=== PATIENT | male | born 1965 | race Hispanic/Latino ===

== ENCOUNTER → 2022-08-21 15:06 | Outpatient (CLI) | payer BC, SELFPAY ==
--- NOTE | ~2022-08-21 | CT_ITS ---
EXAMINATION: CT lung screening DATE: 08/21/2022 15:26 INDICATION: Personal history of tobacco dependence TECHNIQUE: Computed tomography (CT) of the chest was performed without intravenous contrast. The dose -length product was 102.01 mGy-cm. Automated exposure control and iterative reconstruction technique were employed. COMPARISON: None FINDINGS: Heart size is normal. No significant pleural or pericardial effusion. There is an exophytic left renal cyst measuring 1.4 cm. No thoracic lymphadenopathy. There is a 4 mm left lower lobe nodul e, image 68. There is a 3 mm left upper lobe nodule. There are a few scattered 1-2 mm nodules in both lungs. No endobronchial lesions. No pneumothorax. No peripheral consolidation. Mild thoracic spondyl osis. Accentuated thoracic kyphosis. IMPRESSION: 1. Lung-RADS category 2: Benign appearance or behavior. Continue annual screening with noncontrast lo w-dose chest CT in 12 months. Reviewed, dictated and finalized at location B. IMPRESSION: 1. Lung-RADS category 2: Benign appearance or behavior. Continue annual screeni ng with noncontrast low-dose chest CT in 12 months.
== END ==
PROVIDERS: PCP Physician Assistant; Visit Provider Physician Assistant
DX: Z12.2 Encounter for screening for malignant neoplasm of respiratory organs (principal); F17.210 Nicotine dependence, cigarettes, uncomplicated
CPT/HCPCS: 71271

== ENCOUNTER → 2023-11-27 15:25 | Outpatient (CLI) | payer BC, SELFPAY ==
--- NOTE | ~2023-11-27 | CT_ITS ---
EXAMINATION: CT lung screening DATE: 11/27/2023 15:38 INDICATION: Nicotine dependence, cigarettes, uncomplicated TECHNIQUE: Computed tomography (CT) of the chest was performed without intravenous contrast. Addition al 3D reconstructions utilizing coronal maximum intensity projection (MIP) were performed. Automated exposure control and iterative reconstruction technique were employed. The dose-length product was 11 1.03 mGy-cm. COMPARISON: 08/21/2022 FINDINGS: No significant change in a couple nodules in the left lower lobe measuring 3-4 mm and 4-5 mm. No othe r pulmonary nodules, pneumonia, pulmonary edema or pleural effusion. Heart size is normal. No pericar dial effusion. Small amount of atherosclerotic calcification along the right coronary artery. Thoraci c aorta is normal in caliber. No pathologically enlarged thoracic lymphadenopathy. Diffuse hepatic st eatosis. 11 mm left renal cyst. Moderate thoracic spondylosis with chronic mild anterior wedging of a a few mid to lower thoracic vertebral bodies. IMPRESSION: 1. Lung-RADS category 2: Benign appearance or behavior. Continue annual screening with noncontrast lo w-dose chest CT in 12 months. 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 Lung-RADS category 2: Benign appearance or behavior. Continue annual screeni ng with noncontrast low-dose chest CT in 12 months.
== END ==
PROVIDERS: PCP Physician Assistant; Visit Provider Physician Assistant
DX: Z12.2 Encounter for screening for malignant neoplasm of respiratory organs (principal); F17.210 Nicotine dependence, cigarettes, uncomplicated
CPT/HCPCS: 71271

== ENCOUNTER 2025-05-14 00:01 | Day surgery (SDC) | payer BC, SELFPAY ==
[2025-05-05 14:12] VITALS: BMI 31.5
--- OUTSIDE RECORDS SUMMARY | 2025-05-14 00:03 | XMS_ITS | Encounter Summary ---
Author Organization [facility] Healthcare Address [address] [place] [address] Care Team Providers Care Head Irrigator Name Role Phone Joanna Flores Primary Care Provider [phone]- [phone] Encounter Details Date Type Department Care Team (Late st Contact Info) Description 05/10/2025 Results Follow-Up [facility] Family Medicine [address] [place] [address] Joanna Flores PA [address] [place] [address] MMR (IGG) PANEL (MEASLES, MUMPS, RUBELLA) Social History Tobacco Use Types Packs/Day Years Used Date Smoking Tobacco: Every Day Cigarettes 1 40 Smokeless Tobacco: Never Alcohol Use Standard Drinks/Week Comments Yes 0 (1 standard drink = 0.6 oz pur e alcohol) AUDIT-C Answer Date Recorded Q1: How often do you have a drink containing alcohol? 4 or more times a week 01/11/2025 Q2: How many drinks containi ng alcohol do you have on a typical day when you are drinking? 5 or 6 Q3: How often do you have si x or more drinks on one occasion? 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 [place] [address] PCP - General Internal Medicine 04/06/19 documented as of this encounter
--- OUTSIDE RECORDS SUMMARY | 2025-05-14 00:03 | XMS_ITS | Encounter Summary ---
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 Historical Provider Final Res ult documented in this encounter Visit Diagnoses Not on filedocumented in this encounter Care Teams Material Handling Technician Relationship Specialty Start Date End Date Joanna Flores PA [address] [place], [place] [id number] PCP - General Internal Medicine 04/06/19 documented as of this encounter
--- OUTSIDE RECORDS SUMMARY | 2025-05-14 00:03 | XMS_ITS | Clinical Summary ---
Author Organization [facility] Address [address] [place] [address] Care Team Providers Care Music Historian Name Role Phone Joanna Flores Primary Care Provider [phone] Allergies No known active allergies Medications lisinopriL (PRINIVIL,ZESTRIL) 10 mg tabletIndications:E ssential hypertension Take 1 tablet (10 mg total) by mouth daily 90 tablet 3 5 Active atorvastatin (LIPITOR) 10 mg tabletIndications:M ixed hyperlipidemia Take 1 tablet (10 mg total) by mouth daily 90 tablet 3 5 Active allopurinoL (ZYLOPRIM) 300 mg tabletIndications:G out, unspecified cause, unspecified chronicity, unspecified site Take 1 tablet (300 mg total) by mouth daily 90 tablet 3 5 Active Active Problems Problem Noted Date Diagnosed Date CLAUDIA (obstructive sleep apnea) 02/03/2025 Alcohol use 02/03/2025 Multiple pulmonary nodules 02/03/2025 Snoring 01/23/2025 Assessment & Plan (01/23/2025 9:50 PM CDT): This is a significant, separately identifiable problem that was evaluated and managed on the same day as the wellness exam Patient snores quite a bit. He has a stop Bang score of 5. Recommend sleep study. Colon cancer screening 01/23/2025 Assessment & Plan (01/23/2025 9:50 PM CDT): Colon cancer screening past due. Refer back to [facility] as Dr. Bingham did his last one in 2018. BMI 31.0-31.9,adult 08/05/2022 Assessment & Plan (01/11/2025 3:33 PM CDT): Discussed the patient's BMI. The BMI is above average. BMI management plan is completed. BMI Follow-up includes: nutrition counseling, exercise counseling and education provided. Assessment & Plan (11/23/2023 11:46 PM PLASTIC OUTFITTER): Discussed the patient's BMI. The BMI is above average. BMI management plan is completed. BMI Follow-up includes: nutrition counseling, exercise counseling and education provided. Assessment & Plan (08/05/2022 8:49 PM CDT): Discussed the patient's BMI. The BMI is above average. BMI management plan is completed. BMI Follow-up includes: nutrition counseling, exercise counseling and education provided. Prostate cancer screening 08/05/2022 Assessment & Plan (11/23/2023 11:46 PM PLASTIC OUTFITTER): Check PSA Assessment & Plan (08/05/2022 8:49 PM CDT): Check PSA Hyperglycemia 06/25/2021 Assessment & Plan (01/23/2025 9:49 PM CDT): Pre-diabetes/hyperglycemia is a precursor to Dm. Stressed importance of working on diet (decrease your simple sugars and one carbohydrate with each meal) and increase you exercise to achieve weight loss and this will help prevent you from progressing to diabetes. Assessment & Plan (11/23/2023 11:46 PM PLASTIC OUTFITTER): Pre-diabetes/hyperglycemia is a precursor to Dm. Stressed importance of working on diet (decrease your simple sugars and one carbohydrate with each meal) and increase you exercise to achieve weight loss and this will help prevent you from progressing to diabetes. Assessment & Plan (08/05/2022 8:48 PM CDT): Pre-diabetes/hyperglycemia is a precursor to Dm. Stressed importance of working on diet (decrease your simple sugars and one carbohydrate with each meal) and increase you exercise to achieve weight loss and this will help prevent you from progressing to diabetes. Assessment & Plan (06/25/2021 10:06 AM CDT): Pre-diabetes/hyperglycemia is a precursor to Dm. Stressed importance of working on diet (decrease your simple sugars and one carbohydrate with each meal) and increase you exercise to achieve weight loss and this will help prevent you from progressing to diabetes. Fatigue 06/25/2021 Assessment & Plan (01/23/2025 9:49 PM CDT): Probably multifactorial. Check labs and followup to re-evaluate Assessment & Plan (11/23/2023 11:46 PM PLASTIC OUTFITTER): Probably multifactorial. Check labs and followup to re-evaluate Assessment & Plan (08/05/2022 8:49 PM CDT): Probably multifactorial. Check labs and followup to re-evaluate Assessment & Plan (06/25/2021 10:06 AM CDT): Probably multifactorial. Check labs and followup to re-evaluate Obesity (BMI 30-39.9) 06/19/2021 Assessment & Plan (01/11/2025 3:33 PM CDT): Discussed the patient's BMI. The BMI is above average. BMI management plan is completed. BMI Follow-up includes: nutrition counseling, exercise counseling and education provided. Assessment & Plan (11/23/2023 11:44 PM PLASTIC OUTFITTER): Discussed the patient's BMI. The BMI is above average. BMI management plan is completed. BMI Follow-up includes: nutrition counseling, exercise counseling and education provided. Assessment & Plan (08/05/2022 8:48 PM CDT): Discussed the patient's BMI. The BMI is above average. BMI management plan is completed. BMI Follow-up includes: nutrition counseling, exercise counseling and education provided. Assessment & Plan (06/19/2021 3:07 PM CDT): Obesity is unchanged. Discussed the patient's BMI. The BMI is above average. BMI management plan is completed. BMI Follow-up includes: nutrition counseling, exercise counseling and education provided. BMI 32.0-32.9,adult 06/19/2021 Assessment & Plan (06/19/2021 3:07 PM CDT): Obesity is unchanged. Discussed the patient's BMI. The BMI is above average. BMI management plan is completed. BMI Follow-up includes: nutrition counseling, exercise counseling and education provided. Cigarette nicotine dependence without complicati on 06/17/2020 Assessment & Plan (01/23/2025 9:48 PM CDT): Encouraged smoking cessation. Discussed 3 minutes. Reviewed options for assistance with cessation. Reviewed terminal press operator sequela associated with smoking. Pt declines assistance at this time but may contact the office at anytime for further help as they desire. Due for low-dose CT. Order placed Assessment & Plan (11/23/2023 11:46 PM PLASTIC OUTFITTER): Encouraged smoking cessation. Discussed 3 minutes. Reviewed options for assistance with cessation. Reviewed terminal press operator sequela associated with smoking. Pt declines assistance at this time but may contact the office at anytime for further help as they desire. Due for low-dose CT Assessment & Plan (08/05/2022 8:48 PM CDT): Encouraged smoking cessation. Discussed 3 minutes. Reviewed options for assistance with cessation. Reviewed terminal press operator sequela associated with smoking. Pt declines assistance at this time but may contact the office at anytime for further help as they desire. Would like to do low-dose [facility] at [facility] Discussed with patient Lung Cancer screening options with the patient. Encouraged LowDose CT Patient is between 55 - 77 yo. Is a current smoker or quit in the last 15 years. Has a 30+pack years smoking history. Is currently without any signs or symptoms of lung cancer. Is willing to consider curative lung surgery if needed. Assessment & Plan (06/25/2021 10:06 AM CDT): Encouraged smoking cessation. Discussed 3 minutes. Reviewed options for assistance with cessation. Reviewed fci sequela associated with smoking. Pt declines assistance at this time but may contact the office at anytime for further help as they desire. Assessment & Plan (06/17/2020 9:45 PM CDT): Encouraged smoking cessation. Discussed 3 minutes. Reviewed options for assistance with cessation. Reviewed fci sequela associated with smoking. Pt declines assistance at this time but may contact the office at anytime for further help as they desire. Annual physical exam 05/30/2019 Assessment & Plan (01/23/2025 9:48 PM CDT): Encouraged healthy lifestyle, good nutrition and exercise. Encouraged Calcium and Vitamin D and weight bearing exercise for bone health. Reviewed immunizations Reviewed age appropirate screenings. Assessment & Plan (11/23/2023 11:45 PM PLASTIC OUTFITTER): Encouraged healthy lifestyle, good nutrition and exercise. Encouraged Calcium and Vitamin D and weight bearing exercise for bone health. Reviewed immunizations Reviewed age appropirate screenings. Assessment & Plan (08/05/2022 8:43 PM CDT): Encouraged healthy lifestyle, good nutrition and exercise. Encouraged Calcium and Vitamin D and weight bearing exercise for bone health. Reviewed immunizations Reviewed age appropirate screenings. Assessment & Plan (06/25/2021 10:06 AM CDT): Encouraged healthy lifestyle, good nutrition and exercise. Encouraged Calcium and Vitamin D and weight bearing exercise for bone health. Reviewed immunizations Reviewed age appropirate screenings. Assessment & Plan (06/17/2020 9:45 PM CDT): Encouraged healthy lifestyle, good nutrition and exercise. Encouraged Calcium and Vitamin D and weight bearing exercise for bone health. Reviewed immunizations Reviewed age appropirate screenings. Assessment & Plan (05/30/2019 10:27 PM CDT): Encouraged healthy lifestyle, good nutrition and exercise. Encouraged Calcium and Vitamin D and weight bearing exercise for bone health. Reviewed immunizations Reviewed age appropirate screenings. Mixed hyperlipidemia 05/24/2019 Assessment & Plan (01/23/2025 9:49 PM CDT): Encouraged patient to follow low fat/low chol diet like the Mediterranean diet. Increase good fats in the diet. Increase exercise. Monitor labs as needed. Continue atorvastatin 10 Assessment & Plan (11/23/2023 11:45 PM PLASTIC OUTFITTER): Encouraged patient to follow low fat/low chol diet like the Mediterranean diet. Increase good fats in the diet. Increase exercise. Monitor labs as needed. Continue atorvastatin 10 Assessment & Plan (08/05/2022 8:42 PM CDT): Encouraged patient to follow low fat/low chol diet like the Mediterranean diet. Increase good fats in the diet. Increase exercise. Monitor labs as needed. Continue Lipitor due for labs Assessment & Plan (06/25/2021 10:05 AM CDT): Encouraged patient to follow fat/low chol diet like the Mediterranean diet. Increase good fats in the diet. Increase exercise. Monitor labs as needed. Continue statin Assessment & Plan (06/17/2020 9:45 PM CDT): Encouraged patient to continue low fat/low chol diet. Continue exercise. Increase good fats in the diet. Monitor labs as needed. Continue statin Assessment & Plan (05/30/2019 10:27 PM CDT): Encouraged patient to continue low fat/low chol diet. Continue exercise. Increase good fats in the diet. Monitor labs as needed. Continue statin. If remains elevated, may consider increasing statin. Essential hypertension 05/24/2019 Assessment & Plan (01/23/2025 9:49 PM CDT): Bp is stable/in acceptable range for any co-morbidities. Encouraged to limit sodium intake and exercise for weight control. Continue lisinopril 10 Assessment & Plan (11/23/2023 11:45 PM PLASTIC OUTFITTER): Bp is stable/in acceptable range for any co-morbidities. Encouraged to limit sodium intake and exercise for weight control. Continue lisinopril 10 Assessment & Plan (08/05/2022 8:42 PM CDT): Encouraged to limit sodium intake and exercise for weight control. Not well controlled today. He is not taking his medicine as regular as he should. Encouraged to restart the 10 continue monitor closely and if his levels remain above 135/85 he is to call as will need to increase Assessment & Plan (06/25/2021 10:05 AM CDT): Bp is stable/in acceptable range for any co-morbidities. Encouraged to limit sodium intake and exercise for weight control. Continue lisinopril Assessment & Plan (06/17/2020 9:45 PM CDT): Bp is stable/in acceptable range for any co-morbidities. Encouraged to limit sodium intake and exercise for weight control. Continue lisinopril Assessment & Plan (05/30/2019 10:31 PM CDT): This is a significant, separately identifiable problem that was evaluated and managed on the same day as the wellness exam Bp is elevated today. Had been stretching out his meds as he needed to keep appointment. Will have him take his meds daily and return in a few weeks for nurse visit to confirm well controlled with current dosing. Encouraged to limit sodium intake and exercise for weight control. Gout 05/24/2019 Assessment & Plan (01/23/2025 9:49 PM CDT): No current gout flares. Continue allopurinol 300 daily Assessment & Plan (11/23/2023 11:44 PM PLASTIC OUTFITTER): No gout flares. Continue allopurinol Assessment & Plan (08/05/2022 8:43 PM CDT): No current flares. Continue with allopurinol 300 mg check labs Assessment & Plan (06/25/2021 10:05 AM CDT): Continue allopurinol. Check labs Assessment & Plan (06/17/2020 9:45 PM CDT): No gout flairs. Continue alloupurinol Assessment & Plan (05/30/2019 10:27 PM CDT): Continue allopurinol. No flairs. Resolved Problems Problem Noted Date Diagnosed Date Resolved Date Other fatigue 06/17/2020 06/25/2021 Assessment & Plan (06/17/2020 9:46 PM CDT): Probably multifactorial. Check labs and followup to re-evaluate BMI 29.0-29.9,adult 05/25/2019 06/19/20 Assessment & Plan (05/25/2019 4:26 PM CDT): Weight/BMI is in healthy range. Continue healthy lifestyle to maintain. Encounters Date Type Department Care Team Description 05/12/2025 3:00 PM CDT Office Visit [facility] [address] [address] Titus Rubio MD Multiple pulmonary nodules (Primary Dx); CLAUDIA (obstructive sleep apnea); Alcohol use; Cigarette nicotine dependence without complication; BMI 31.0-31.9,adult 05/10/2025 Results Follow-Up [facility] [address] [place] [address] [place] [phone] Joanna Flores PA MMR (IGG) PANEL (MEASLES, MUMPS, RUBELLA) 04/22/2025 Orders Only [address] [place] [address] Joanna Flores PA Immunity status testing (Primary Dx) 04/07/2025 Telephone [facility] [address] [place] [address] Amber Chairez, [facility] Sleep Study Results/CPAP order 04/05/2025 3:00 PM CDT - 04/05/2025 11:59 PM CDT Hospital Encounter [facility] [address] [place] [address] Snoring; CLAUDIA (obstructive sleep apnea); BMI 32.0-32.9,adult; Cigarette nicotine dependence without complication; Alcohol use; Multiple pulmonary nodules Discharge Disposition: Discharge to home or self care 03/13/2025 4:00 PM CDT - 03/13/2025 11:59 PM CDT Hospital Encounter [facility] [address] [place] [address] Personal history of nicotine dependence Discharge Disposition: Discharge to home or self care 02/24/2025 Results Follow-Up [facility] [place] [address] [facility] [address] [place] [address] Lung Cancer Screening 02/13/2025 1:05 PM CDT - 02/13/2025 11:59 PM CDT Hospital Encounter [facility] [address] [place] [address] Personal history of nicotine dependence Discharge Disposition: Discharge to home or self care from Last 3 Months Immunizations Immunization Administration Dates Next Due Influenza, Quadrivalent, Whitney l Culture-based MDCK, Preservative Free, Antibiotic Free, Intramuscular 08/18/2023,08/27/2022 Influenza, Quadrivalent, Spl it, Preservative Free, Intramuscular 08/23/2021,09/18/2020,08/07/2018 Influenza, Unspecified 01/25/2025(Deferred: Molly ent Refused) Tdap 11/25/2018 Surgical History Surgery Date Site/Laterality Comments HAND SURGERY Right Family History Medical History Relation Name Comments Cancer Mother Relation Name Status Comments Father Alive Mother Social History Tobacco Use Types Packs/Day Years Used Date Smoking Tobacco: Every Day Cigarettes 1 40 Smokeless Tobacco: Never Tobacco Cessation:Ready to Q uit: Not Asked; Counseling Given: Not Answered Alcohol Use Standard Drinks/Week Comments Yes 0 [...] on file Legal Sex Male 5:48 PM PLASTIC OUTFITTER Gender Identity Male 06/15/2020 10:19 AM CDT Sexual Orientation Straight 06/15/2020 10 :19 AM CDT Occupation Industry Job Start Date Job End Date [employer] Not on file Not on file Not on file Obstetrics History Last Filed Vital Signs Vital Sign Reading Time Taken Comments Blood Pressure 138/72 05/12/2025 2:36 PM CDT Pulse 65 05/12/2025 2:36 PM CDT Temperature 36.4 C (97.5 F) 05/12/2025 2:36 PM CDT Respiratory Rate 20 05/12/2025 2:36 PM CDT Oxygen Saturation 98% 05/12/2025 2:36 PM CDT Inhaled Oxygen Concentration - - Weight 87.1 kg (192 lb) 05/12/2025 2:36 PM CDT Height 165.1 cm (5' 5) 05/12/2025 2:36 PM CDT Body Mass Index 31.95 05/12/2025 2:36 PM CDT Plan of Treatment Health Maintenance Due Date Last Done Comments Hepatitis C Screening 1967 Hepatitis B Screening 1985 Pneumococcal vaccine <65 (1 of 2 - PCV) 1986 Zoster Vaccine (1 of 2) 2017 Colon Cancer Screening-Colonoscopy 03/28/2023 03/28/2018 Covid-19 Vaccine (3 - 2023-2 5 season) 2024 08/29/2021, 01/02/2021 Influenza Vaccine (#1) 2025 , 08/27/2022, 08/23/2021, Additional history exists Lung Cancer Screening 09/09/2025 03/13/2025 , 02/13/2025, 11/27/2023, Additional history exists Prostate Cancer Screening-PSA 11/16/2025, 08/11/2022, 05/18/2019 Depression Screening 01/11/2026 01/11/2025, 11/13/2023, 11/13/2023, Additional history exists Regular Well Visit/Exam 18-64 01/11/2026, 11/13/2023, 07/19/2022, Additional history exists DTaP/Tdap/Td Vaccine (2 - Td or Tdap) 11/25/2028 11/25/2018 Colon Cancer Screening-CT Colonography Discontinued 03/28/2018 Colon Cancer Screening-DNA Stool Discontinued 03/28/20 18 Colon Cancer Screening-FIT Discontinued 03/28/2018 Colon Cancer Screening-Sigmoidoscopy Discontinued 03/28/2018 Procedures Procedure Name Priority Date/Time Associated Diagnosis Comments MMR (IGG) PANEL (MEASLES, MUMPS, RUBELLA) Routine 05/08/2025 9:31 AM CDT Immunity status testing PORTABLE/HOME SLEEP STUDY Routine 04/05/2025 3:06 PM CDT Snoring CLAUDIA (obstructive sleep apnea) BMI 32.0-32.9,adult Cigarette nicotine dependence without complication Alcohol use Multiple pulmonary nodules CT LUNG CANCER SCREENING Schedule Routine, Read Routine (OP Routine) 03/13/2025 4:18 PM CDT Personal history of nicotine dependence CT LUNG CANCER SCREENING Schedule Routine, Read Routine (OP Routine) 02/13/2025 1:10 PM CDT Personal history of nicotine dependence PSA SCREEN Routine 11/16/2023 10:00 AM PLASTIC OUTFITTER Prostate cancer screening HM COLONOSCOPY Routine 03/28/2018 from Last 3 Months or Most Recently Relevant to Health Maintenance Results * MMR (IGG) PANEL (MEASLES, MUMPS, RUBELLA) (05/08/2025 9:31 AM CDT) Measles (Rubeola) IgG >300.00 AU/mL [facility] Comment: AU/mL Interpretation ----- <13.50 Not consistent with immunity 13.50-16.49 Equivocal >16.49 Consistent with immunity The presence of measles IgG suggests immunization or past or current infection with measles virus. For additional information, please refer to http://Hallspot.Aggios/faq/TCT389 (This link is being provided for informational/ educational purposes only.) Mumps IgG 166.00 AU/mL [facility] Comment: AU/mL Interpretation ------- <9.00 Not consistent with immunity 9.00-10.99 Equivocal >10.99 Consistent with immunity The presence of mumps IgG antibody suggests immunization or past or current infection with mumps virus. Rubella IgG >33.00 Index [facility] Comment: Index Interpretation ----- <0.90 Not consistent with immunity 0.90-0.99 Equivocal > or = 1.00 Consistent with immunity The presence of rubella IgG antibody suggests immunization or past or current infection with rubella virus. Blood 05/08/2025 9:31 AM CDT 05/08/2025 9:32 AM CDT Joanna TORRES LAB BLOOD ORDERABLES Final Result [facility] [address] [place] [address] * Portable/Home Sleep Study (04/05/2025 3:06 PM CDT) us Titus Rubio MD SLEEP CENTER ORDERABLES Fin al Result [facility] [address] [place] [id number] * CT Lung Cancer Screening (03/13/2025 4:18 PM CDT) Anatomical Region Laterality Modality Chest N/A Computed Tomogra phy 03/15/2025 1:20 PM CDT Narrative 03/15/2025 2:27 PM CDT EXAM DESCRIPTION: CT LUNG CANCER SCREENING REASON FOR STUDY: Screening CT of the chest in a current smoker with a 52.5 pack year smoking history. Additional history: None. TECHNIQUE: Low dose CT scan of the chest was performed without intravenous contrast using helical scanning technique. The exam extends from the lung apices through the lung bases. Automatic exposure control was used as a dose optimization technique. NOTE: This study was performed for the specific purposes of lung cancer screening and is not an alternative to diagnostic chest CT. RADIATION DOSE: CT dose index volume (CTDIvol) = 2.89 mGy COMPARISON: CT lung screen 02/13/2025; CT lung screen 11/27/2019 FINDINGS: SMOKING RELATED LUNG DISEASE: Mild emphysema LUNG NODULES: 5 mm nodule in the right upper lobe appears to be real (series 3, image 115). Unchanged 3 mm solid nodule in the left lower lobe on image 170. Unchanged 3 mm solid nodule in the right upper lobe on image 84. Unchanged 6 mm solid nodule in the right upper lobe on image 137. Unchanged 5 mm solid nodule in the left lower lobe on image 163. Unchanged 5 mm solid nodule in the left lower lobe on image 181. Unchanged 7 mm ground-glass nodule in the left upper lobe on image 115. CORONARY ARTERY CALCIFICATION: Positive OTHER: There is no pleural effusion or pneumothorax. Central airways are patent. Normal heart size without pericardial effusion. Thoracic aorta is normal in course and caliber and contains a moderate amount of calcified atherosclerotic plaque. There is hepatic steatosis. IMPRESSION: 1. Recommend six-month follow-up for a 5 mm nodule in the right upper lobe. 2. Additional unchanged bilateral pulmonary nodules measuring up to 7 mm. No new pulmonary nodule. 3. Mild emphysema. 4. Hepatic steatosis. Lung-RADS category 3: Probably benign. Recommendation: Low dose CT of chest in 6 months. THIS IS AN ELECTRONICALLY VERIFIED FINAL REPORT 03/15/2025 2:27 PM - Electronically signed by Neal Islas M.D. AM: AM Report ID: [id number] Reading Location: [id number] Procedure Note Neal Islas MD - 03/15/2025 EXAM DESCRIPTION: CT LUNG CANCER SCREENING REASON FOR STUDY: Screening CT of the chest in a current smoker with a 52.5 pack year smoking history. Additional history: None. TECHNIQUE: Low dose CT scan of the chest was performed without intravenous contrast using helical scanning technique. The exam extends from the lung apices through the lung bases. Automatic exposure control was used as adose optimization technique. NOTE: This study was performed for the specific purposes of lung cancer screening and is not an alternative to diagnostic chest CT. RADIATION DOSE: CT dose index volume (CTDIvol) = 2.89 mGy COMPARISON: CT lung screen 02/13/2025; CT lung screen 11/27/2019 FINDINGS: SMOKING RELATED LUNG DISEASE: Mild emphysema LUNG NODULES: 5 mm nodule in the right upper lobe appears to be real(series 3, image 115). Unchanged 3 mm solid nodule in the left lower lobe on image 170. Unchanged 3 mm solid nodule in the right upper lobe on image 84. Unchanged 6 mm solid nodule in the right upper lobe on image 137. Unchanged 5 mm solid nodule in the left lower lobe on image 163. Unchanged 5 mm solid nodule in the left lower lobe on image 181. Unchanged 7 mm ground-glass nodule in the left upper lobe on image 115. CORONARY ARTERY CALCIFICATION: Positive OTHER: There is no pleural effusion or pneumothorax. Central airwaysare patent. Normal heart size without pericardial effusion. Thoracic aortais normal in course and caliber and contains a moderate amount of calcified atherosclerotic plaque. There is hepatic steatosis. IMPRESSION: 1. Recommend six-month follow-up for a 5 mm nodule in theright upper lobe. 2. Additional unchanged bilateral pulmonary nodules measuring up to 7 mm.No new pulmonary nodule. 3. Mild emphysema. 4. Hepatic steatosis. Lung-RADS category 3: Probably benign. Recommendation: Low dose CT of chest in 6 months. THIS IS AN ELECTRONICALLY VERIFIED FINAL REPORT 03/15/2025 2:27 PM - Electronically signed by Neal Islas M.D. AM: AM Report ID: [id number] Reading Location: [place] [address] Titus Rubio MD [facility] [place]ED[place] Final Res ult * CT Lung Cancer Screening (02/13/2025 1:10 PM CDT) Anatomical Region Laterality Modality Chest N/A Computed Tomogra phy 02/24/2025 2:38 PM CDT Narrative 02/24/2025 3:00 PM CDT EXAM DESCRIPTION: CT LUNG CANCER SCREENING REASON FOR STUDY: Screening CT of the chest in a current smoker with a 52.5 pack year smoking history. Additional history: None. TECHNIQUE: Low dose CT scan of the chest was performed without intravenous contrast using helical scanning technique. The exam extends from the lung apices through the lung bases. Automatic exposure control was used as a dose optimization technique. NOTE: This study was performed for the specific purposes of lung cancer screening and is not an alternative to diagnostic chest CT. RADIATION DOSE: CT dose index volume (CTDIvol) = 2.37 mGy COMPARISON: CT chest 11/27/2023 FINDINGS: Examination is degraded by respiratory motion in the lung bases. SMOKING RELATED LUNG DISEASE: Mild emphysema. There is also mild bronchial wall thickening. LUNG NODULES: Unchanged 3 mm solid nodule in the right upper lobe on image 73. Unchanged 6 mm solid nodule in the right upper lobe on image 124. Questionable new 5 mm solid nodule in the right upper lobe on image 108. Unchanged 5 mm solid nodule in the left lower lobe on image 164. New 3 mm solid nodule in the left lower lobe on image 170. Unchanged 5 mm nodule in the left lower lobe on image 183. Unchanged 7 mm ground-glass nodule in the left upper lobe on image 102. CORONARY ARTERY CALCIFICATION: Positive OTHER: There is no pleural effusion or pneumothorax. The central airways patent. Normal heart size without pericardial effusion. Thoracic aorta is normal in course and caliber with a moderate amount of calcified atherosclerotic plaque. There are no enlarged mediastinal or axillary lymph nodes. The visualized upper abdomen is unremarkable. There are no suspicious osseous lesions. IMPRESSION: 1. Respiratory motion degraded examination, particularly in the lung bases. Recommend repeat scanning as lung nodules may not be visible. 2. Questionable new 5 mm solid nodule in the right upper lobe. New 3 mm solid nodule in the left lower lobe. 3. Other pulmonary nodules are unchanged. 4. Mild emphysema and bronchial wall thickening. Lung-RADS category 0: Respiratory motion. Recommendation: Additional imaging. THIS IS AN ELECTRONICALLY VERIFIED FINAL REPORT 02/24/2025 3:00 PM - Electronically signed by Neal Islas M.D. AM: AM Report ID: [id number] Reading Location: [id number] Titus Rubio MD IMG CT PROCEDURES Final Res ult * PSA screen (11/16/2023 10:00 AM PLASTIC OUTFITTER) PSA 0.77 < OR = 4.00 ng/mL [facility] Comment: The total PSA value from this assay system is standardized against the WHO standard. The test result will be approximately 20% lower when compared to the equimolar-standardized total PSA (Elaine [place]). Comparison of serial PSA results should be interpreted with this fact in mind. This test was performed using the Siemens chemiluminescent method. Values obtained from different assay methods cannot be used interchangeably. PSA levels, regardless of value, should not be interpreted as absolute evidence of the presence or absence of disease. Blood 11/16/2023 10:0 0 AM PLASTIC OUTFITTER 11/16/2023 10:01 AM PLASTIC OUTFITTER Narrative [facility] - 11/17/2023 10:36 AM PLASTIC OUTFITTER FASTING:YES FASTING: YES Joanna TORRES LAB BLOOD ORDERABLES Final Result [facility] [address] [place] [address] * COLONOSCOPY (03/28/2018) Colonoscopy Abnormal Historical Provider HEALTH MAINTENANCE Final Result from Last 3 Months or Most Recently Relevant to Health Maintenance Insurance [employer]AL Care Teams Music Historian Relationship Specialty Start Date End Date Joanna Flores PA [address] [place] [place] [id number] PCP - General Internal Medicine 04/06/19
--- OUTSIDE RECORDS SUMMARY | 2025-05-14 00:03 | XMS_ITS | Referral Summary ---
Author Organization [facility] [address] [facility] Address [address] [place] [address] Care Team Providers Care Office Runner Name Role Phone Joanna Flores Primary Care Provider [phone]- [phone] Encounters Date Type Department Care Team Description 05/12/2025 3:00 PM CDT Office Visit [facility] Pulmonary [address] [place] [phone] Titus Rubio MD Multiple pulmonary nodules (Primary Dx); CLAUDIA (obstructive sleep apnea); Alcohol use; Cigarette nicotine dependence without complication; BMI 31.0-31.9,adult 05/10/2025 Results Follow-Up [facility] Family Medicine [facility] [address] [place] [phone] Joanna Flores PA MMR (IGG) PANEL (MEASLES, MUMPS, RUBELLA) 04/22/2025 Orders Only [address] [place] [address] Joanna Flores PA Immunity status testing (Primary Dx) 04/07/2025 Telephone [facility] [address] [place] [address] Amber Chairez, [facility] Sleep Study Results/CPAP order 04/05/2025 3:00 PM CDT - 04/05/2025 11:59 PM CDT Hospital Encounter [facility] [address] [place] [address] Snoring; CLAUDIA (obstructive sleep apnea); BMI 32.0-32.9,adult; Cigarette nicotine dependence without complication; Alcohol use; Multiple pulmonary nodules Discharge Disposition: Discharge to home or self care 03/13/2025 4:00 PM CDT - 03/13/2025 11:59 PM CDT Hospital Encounter [facility] [address] [place] [address] Personal history of nicotine dependence Discharge Disposition: Discharge to home or self care 02/24/2025 Results Follow-Up [facility] [address] [facility] [address] [place] [phone] Lung Cancer Screening 02/13/2025 1:05 PM CDT - 02/13/2025 11:59 PM CDT Hospital Encounter [facility] Medical Office Building [address] [place] [address] Personal history of nicotine dependence Discharge Disposition: Discharge to home or self care from Last 3 Months Allergies No known active allergies Medications lisinopriL (PRINIVIL,ZESTRIL) 10 mg tabletIndications:E ssential hypertension Take 1 tablet (10 mg total) by mouth daily 90 tablet 3 Active atorvastatin (LIPITOR) 10 mg tabletIndications:M ixed [...] provided. Assessment & Plan (11/23/2023 11:46 PM OCCUPATIONAL THERAPY SPECIALIST): Discussed the patient's BMI. The BMI is [...] 08/05/2022 Assessment & Plan (11/23/2023 11:46 PM OCCUPATIONAL THERAPY SPECIALIST): Check PSA Assessment & Plan (08/05/2022 8:49 [...] diabetes. Assessment & Plan (11/23/2023 11:46 PM OCCUPATIONAL THERAPY SPECIALIST): Pre-diabetes/hyperglycemia is a precursor to Dm. Stressed [...] re-evaluate Assessment & Plan (11/23/2023 11:46 PM OCCUPATIONAL THERAPY SPECIALIST): Probably multifactorial. Check labs and followup to [...] provided. Assessment & Plan (11/23/2023 11:44 PM OCCUPATIONAL THERAPY SPECIALIST): Discussed the patient's BMI. The BMI is [...] Reviewed options for assistance with cessation. Reviewed intermodal customer service sequela associated with smoking. Pt declines assistance at this time but may contact the office at anytime for further help as they desire. Due for low-dose CT. Order placed Assessment & Plan (11/23/2023 11:46 PM OCCUPATIONAL THERAPY SPECIALIST): Encouraged smoking cessation. Discussed 3 minutes. Reviewed options for assistance with cessation. Reviewed intermodal customer service sequela associated with smoking. Pt declines assistance at this time but may contact the office at anytime for further help as they desire. Due for low-dose CT Assessment & Plan (08/05/2022 8:48 PM CDT): Encouraged smoking cessation. Discussed 3 minutes. Reviewed options for assistance with cessation. Reviewed intermodal customer service sequela associated with smoking. Pt declines assistance at this time but may contact the office at anytime for further help as they desire. Would like to do low-dose CT at [facility] Discussed with patient Lung Cancer screening options [...] Reviewed options for assistance with cessation. Reviewed intermodal customer service sequela associated with smoking. Pt declines assistance at this time but may contact the office at anytime for further help as they desire. Assessment & Plan (06/17/2020 9:45 PM CDT): Encouraged smoking cessation. Discussed 3 minutes. Reviewed options for assistance with cessation. Reviewed penitentiary sequela associated with smoking. Pt declines assistance [...] screenings. Assessment & Plan (11/23/2023 11:45 PM OCCUPATIONAL THERAPY SPECIALIST): Encouraged healthy lifestyle, good nutrition and exercise. [...] 10 Assessment & Plan (11/23/2023 11:45 PM OCCUPATIONAL THERAPY SPECIALIST): Encouraged patient to follow low fat/low chol [...] 10 Assessment & Plan (11/23/2023 11:45 PM OCCUPATIONAL THERAPY SPECIALIST): Bp is stable/in acceptable range for any [...] daily Assessment & Plan (11/23/2023 11:44 PM OCCUPATIONAL THERAPY SPECIALIST): No gout flares. Continue allopurinol Assessment & [...] healthy range. Continue healthy lifestyle to maintain. Immunizations Immunization Administration Dates Next Due Influenza, Quadrivalent, Whitney l Culture-based MDCK, Preservative Free, Antibiotic Free, Intramuscular 08/18/2023,08/27/2022 Influenza, Quadrivalent, Spl it, Preservative Free, Intramuscular 08/23/2021,09/18/2020,08/07/2018 Influenza, Unspecified 01/25/2025(Deferred: Molly ent Refused) Tdap 11/25/2018 Social History Tobacco Use Types Packs/Day Years [...] on file Legal Sex Male 5:48 PM OCCUPATIONAL THERAPY SPECIALIST Gender Identity Male 06/15/2020 10:19 AM CDT Sexual Orientation Straight 06/15/2020 10 :19 AM CDT Occupation Industry Job Start Date Job End Date [employer] Not on file Not on file Not on file Last Filed Vital Signs Vital Sign Reading [...] 05/12/2025 2:36 PM CDT Plan of Treatment Not on file Procedures Procedure Name Priority Date/Time Associated Diagnosis [...] dependence PSA SCREEN Routine 11/16/2023 10:00 AM OCCUPATIONAL THERAPY SPECIALIST Prostate cancer screening HM COLONOSCOPY Routine 03/28/2018 [...] virus. For additional information, please refer to http://education.Frevvo/faq/MNH650 (This link is being provided for informational/ [...] 9:31 AM CDT 05/08/2025 9:32 AM CDT us Joanna TORRES LAB BLOOD ORDERABLES Final Result [facility] [address] [place] [address] * Portable/Home Sleep Study (04/05/2025 3:06 PM CDT) us Titus Rubio MD SLEEP CENTER ORDERABLES Fin al Result [facility] SLEEP MEDICINE [address] [place] [id number] * CT Lung Cancer Screening [...] Neal Islas M.D. AM: AM Report ID: [id number] Reading Location: [place] [address] Procedure Note Neal Islas MD - 03/15/2025 [...] Neal Islas M.D. AM: AM Report ID: [id number] Reading Location: [place] [address] Titus Rubio MD IM CT PROCEDURES Final Res ult * CT [...] Neal Islas M.D. AM: AM Report ID: [id number] Reading Location: [place] [address] Titus Rubio MD IMG CT PROCEDURES Final Res ult * PSA screen (11/16/2023 10:00 AM OCCUPATIONAL THERAPY SPECIALIST) Pathologist [facility] PSA 0.77 < OR = 4.00 ng/mL [facility] Comment: The total PSA value from this assay system is standardized against the WHO standard. The test result will be approximately 20% lower when compared to the equimolar-standardized total PSA (Elaine [place]). Comparison of serial PSA results should be interpreted with this fact in mind. This test was performed using the Siemens chemiluminescent method. Values obtained from different assay methods cannot be used interchangeably. PSA levels, regardless of value, should not be interpreted as absolute evidence of the presence or absence of disease. Blood 11/16/2023 10:0 0 AM OCCUPATIONAL THERAPY SPECIALIST 11/16/2023 10:01 AM OCCUPATIONAL THERAPY SPECIALIST Narrative [facility] - 11/17/2023 10:36 AM OCCUPATIONAL THERAPY SPECIALIST FASTING:YES FASTING: YES Joanna TORRES LAB BLOOD ORDERABLES Final Result [facility] [address] [phone] * HM COLONOSCOPY (03/28/2018) Colonoscopy Abnormal us Historical Provider HEALTH MAINTENANCE Final Result from Last 3 Months or Most Recently Relevant to Health Maintenance Insurance [facility] FEDERAL Care Teams Office Runner Relationship Specialty Start Date End Date Joanna Flores PA [address] [address] PCP - General Internal Medicine 04/06/19
--- NOTE | 2025-05-14 07:56 | P.PNAN_ITS ---
Anes - Initial Pre Proc Eval Procedure: Operation Date: 05/14/25 11:30 Proposed Procedures p Screening Colonoscopy - Jonel Carvalho MD Date/Time: 05/14/25 07:56 Surgeon: Jonel Carvalho MD Pre Op Diagnosis: Encounter for screening for malignant neoplasm of Patient Data Age: 60 Gender: M Height: 1.65 m Weight: 86 kg Allergies Allergy/AdvReac Type Severity Reaction Status Date / Time No Known Allergies Allergy Mild Verified 05/14/25 10:24 Home Medications ?Medication ?Instructions ?Recorded ?Confirmed ?Type allopurinol 300 mg tablet 300 mg PO DAILY 05/05/25 05/14/25 History atorvastatin 10 mg tablet 10 mg PO QPM 05/05/25 05/14/25 History lisinopril 10 mg tablet 10 mg PO DAILY 05/05/25 05/14/25 History Patient hx anesthesia problems: none Family hx anesthesia problems: none Results Review: All pre-operative results and documents have been reviewed as part of the pre- operative evaluation. [facility] Past Medical History Medical History (Updated 05/14/25 @ 07:56 by Blaine Ayoub DO) Hyperlipidemia Hypertension Family History Family History (Updated 05/25/16 @ 23:21 by DOCTOR UNKNOWN) Mother Patient's mother is in good health Family history of malignant neoplasm Family history of type 2 diabetes mellitus Family history of diabetes mellitus in first degree relative Father Patient's father is in good health Social History Social History Smoking packs per day: 1 Smoking cigarettes per day: 20.0 Years smoked: 41 Smoking pack-years: 41.00 Smoking status: Current every day smoker Alcohol intake: current Drinks per week: 54 Substance use type: does not use Living arrangements: with family Spiritual care concerns: No Anes - Eval Final PreProcedure Day of Procedure 05/14/25 07:56 Patient weight: obese Heart: regular rate and rhythm Lungs: clear to auscultation Airway: Mallampati scale class II Neurological: alert and oriented Last oral intake: >/= 8 hours ASA classification: III Emergent: no Anesthetic plan: proceed Anesthesia type and monitoring: general ETT and standard monitoring Results Review: All pre-operative results and documents have been reviewed as part of the pre- operative evaluation. Informed Consent: The patient's anesthetic plan and its attendant risks and benefits were discussed with the patient/family/POA. Questions were solicited and answers provided to the satisfaction of the patient/family/POA.
[2025-05-14 10:15] VITALS: BP 136/85; PULSE 80; RESP 19; TEMP 36.5; O2SAT 99
[2025-05-14] MEDS: LACTATED RINGERS 1,000 ML 150 ML IV CONT (10:35)
--- NOTE | 2025-05-14 10:59 | PM.HPGS ---
History of Present Illness History of Present Illness Consent: Risks, benefits, and alternatives have been discussed and questions answered. Patient agrees to proceed with procedure. Chief complaint: Encounter for screening for malignant neoplasm of Narrative: Thomas Richardson is a 60 year old male here for screening colonoscopy Review of Systems Review of Systems: All systems reviewed & are unremarkable except as noted in HPI and below PMFSH Past Medical History Medical History (Updated 05/14/25 @ 11:00 by Jonel Carvalho MD) Colon cancer screening Hyperlipidemia Hypertension Family History Family History (Updated 05/25/16 @ 23:21 by DOCTOR UNKNOWN) Mother Patient's mother is in good health Family history of malignant neoplasm Family history of type 2 diabetes mellitus Family history of diabetes mellitus in first degree relative Father Patient's father is in good health Social History Social History Smoking packs per day: 1 Smoking cigarettes per day: 20.0 Years smoked: 41 Smoking pack-years: 41.00 Smoking status: Current every day smoker Alcohol intake: current Drinks per week: 54 Substance use type: does not use Living arrangements: with family Spiritual care concerns: No Meds Home Medications and Allergies Home Medications ?Medication ?Instructions ?Recorded ?Confirmed ?Type allopurinol 300 mg tablet 300 mg PO DAILY 05/05/25 05/14/25 History atorvastatin 10 mg tablet 10 mg PO QPM 05/05/25 05/14/25 History lisinopril 10 mg tablet 10 mg PO DAILY 05/05/25 05/14/25 History Allergies Allergy/AdvReac Type Severity Reaction Status Date / Time No Known Allergies Allergy Mild Verified 05/14/25 10:24 Vital Signs Vital Signs - 24 hr 05/14/25 10:15 Temperature 97.7 F Pulse Rate 80 Respiratory Rate 19 Blood Pressure 136/85 Pulse Oximetry 99 Oxygen Delivery Room Air Exam Const: General: comfortable and no acute distress HENMT: Face/Nose/Sinus: Normal nares present Eyes: General: appearance normal, both eyes and all related structures Neck: Neck: no JVD Resp: Auscultation: clear to auscultation bilaterally Cardio: Rate: regular rate Rhythm: regular rhythm GI: Inspection: non-distended GI Palp: Yes Soft to palpation Skin: General skin exam: normal color Neuro: Speech: normal speech Extrem: General: normal to inspection Psych: Mental Status: mental status grossly normal Assessment and Plan Assessment and plan (1) Colon cancer screening: Code(s): Z12.11 - Encounter for screening for malignant neoplasm of colon Status: Acute Assessment and Plan: colonoscopy
[2025-05-14 11:15] VITALS: BP 110/75; PULSE 89; RESP 20; O2SAT 95
[2025-05-14 11:25] VITALS: BP 120/79; PULSE 84; RESP 19; O2SAT 95
[2025-05-14 11:35] VITALS: BP 123/83; PULSE 89; RESP 20; O2SAT 97
== END 2025-05-14 11:38 | disposition home or self-care (01) ==
PROVIDERS: PCP Physician Assistant; Referring Provider Physician Assistant; Visit Provider Internal Medicine Gastroenterology
PROC: 0DJD8ZZ Inspection of Lower Intestinal Tract, Via Natural or Artificial Opening Endoscopic (ICD-10-PCS; CPT 45378; principal; 2025-05-14 11:30)
DX: Z12.11 Encounter for screening for malignant neoplasm of colon (principal); K57.30 Diverticulosis of large intestine without perforation or abscess without bleeding; K64.8 Other hemorrhoids; F17.210 Nicotine dependence, cigarettes, uncomplicated; E66.9 Obesity, unspecified; Z68.30 Body mass index [BMI] 30.0-30.9, adult
CPT/HCPCS: 45378; J2003; J2704; J7120